=== PATIENT | male | born 1935 | race Caucasian/White ===

== ENCOUNTER 2018-07-23 14:44 | Inpatient (IN) | payer OTHER ==
[~2018-07-23] VITALS: Ht 165.1 cm; Wt 72.1 kg
[2018-07-23 14:58] VITALS: BP 154/67
[2018-07-23] MEDS ORDERED: PRILOSEC 10MG C10 MG PO (15:06)
[2018-07-23] MEDS ORDERED: FLOMAX0.4 MG PO (15:07)
[2018-07-23] MEDS ORDERED: CARVEDILOL12.5 MG PO (15:07)
[2018-07-23] MEDS ORDERED: GARLIC1 EACH PO (15:08)
[2018-07-23] MEDS ORDERED: VYTORIN 10-401 EACH PO (15:08)
[2018-07-23] MEDS ORDERED: ASPIRIN EC325 M1 PO (15:08)
[2018-07-23] MEDS ORDERED: POTASSIUM600 MG PO (15:09)
[2018-07-23] MEDS ORDERED: ONE DAILY FOR1 EACH PO (15:10)
[2018-07-23 15:25] LABS: ABSOLUTE BASOPHILS 0.1 thou/uL (0.0-0.2); ABSOLUTE EOSINOPHILS 0.2 thou/uL (0.0-0.7); ABSOLUTE LYMPHOCYTES 1.8 thou/uL (0.8-5.3); ABSOLUTE MONOCYTES 1.5 thou/uL (0.0-1.2); ABSOLUTE NEUTROPHILS 11.2 thou/uL (1.6-8.1); BASOPHILS 0.5 %; EOSINOPHILS 1.1 %; HEMATOCRIT 43.7 % (42.0-52.0); HEMOGLOBIN 14.2 gm/dL (14.0-18.0); LYMPHOCYTES 11.9 %; MCH 29.7 pg (26.0-34.0); MCHC 32.6 g/dL (28.0-37.0); MONOCYTES 10.4 %; MPV 8.8 fl. (7.2-11.1); NUCLEATED RBCS 0 /100WBC; PLATELET COUNT* 259 thou/uL (150-400); POLYS 76.1 %; RDW-CV 14.7 % (10.5-14.5); WBC 14.7 thou/uL (4.0-11.0)
[2018-07-23 15:41] LABS: ALBUMIN 2.4 g/dL (3.4-5.0); ALKALINE PHOSPHATASE 70 U/L (46-116); ANION GAP 6 mmol/L (7-16); BUN 24 mg/dL (7-18); CALCIUM 8.7 mg/dL (8.5-10.1); CHLORIDE 106 mmol/L (98-107); CO2 30 mmol/L (21-32); GLUCOSE 121 mg/dL (70-99); POTASSIUM 4.3 mmol/L (3.5-5.1); SGOT 19 U/L (15-37); SGPT 38 U/L (30-65); SODIUM 142 mmol/L (136-145); TOTAL BILIRUBIN 0.3 mg/dL (<0.1-1.0); TOTAL PROTEIN 7.3 g/dL (6.4-8.2); TROPONIN-I LEVEL <0.06 ng/mL (<0.06)
[2018-07-23 17:58] VITALS: BP 147/61
[2018-07-23 18:17] VITALS: BP 147/61
--- NOTE | 2018-07-23 18:38 | NUR ---
PATIENT CAME TO THE FLOOR FROM THE ER IN STABLE CONDITION. VITAL SIGNS STABLE ON 2 LITERS OF OXYGEN. UP AD ONOFRE IN ROOM. NO COMPLAINTS OF PAIN OR NAUSEA. ROOM ORIENTATION AND ADMISSION ASSESSMENT DONE. CALL LIGHT IS IN REACH WILL CONTINUE TO MONITOR.
[2018-07-23 20:45] VITALS: BP 148/77
[2018-07-24] VITALS: BP 161/67
[2018-07-24 04:00] VITALS: BP 126/59
[2018-07-24 04:08] LABS: HEMATOCRIT 39.1 % (42.0-52.0); HEMOGLOBIN 12.8 gm/dL (14.0-18.0); MCH 29.8 pg (26.0-34.0); MCHC 32.9 g/dL (28.0-37.0); MCV 90.6 fL (80.0-100.0); MPV 8.9 fl. (7.2-11.1); NUCLEATED RBCS 0 /100WBC; PLATELET COUNT* 238 thou/uL (150-400); RBC 4.31 mil/uL (4.50-6.00); RDW-CV 14.6 % (10.5-14.5)
[2018-07-24 04:30] LABS: CALCIUM 8.2 mg/dL (8.5-10.1); CREATININE 1.7 mg/dL (0.6-1.3); MAGNESIUM 1.9 mg/dL (1.8-2.4); PHOSPHORUS* 1.8 mg/dL (2.5-4.9); POTASSIUM 4.2 mmol/L (3.5-5.1)
--- NOTE | 2018-07-24 05:21 | NUR ---
ASSUMED CARE AT START OF SHIFT PT SAT UP IN CHAIR MOST OF SHIFT LOOSE PRO-COUGH NOTED SAMPLE SENT TO LAB ALONG WITH URINE SAMPLE ORDERED. NO CONCERNS VOICED, DISCUSSED PLAN OF CARE AND AGREEABLE. METAL FURNITURE GLAZIER SHOWS NSR WITH BBB. WILL REPORT CHANGES AND ABNORMAL FINDINGS.
[2018-07-24 05:56] LABS: ABSOLUTE LYMPHOCYTES 1.1 thou/uL (0.8-5.3); ABSOLUTE MONOCYTES 0.5 thou/uL (0.0-1.2); ABSOLUTE NEUTROPHILS 10.4 thou/uL (1.6-8.1); ANISOCYTOSIS 1+; PLATELET ESTIMATE ADEQUATE; POIKILOCYTOSIS 1+
[2018-07-24 09:26] VITALS: BP 141/48
[2018-07-24 12:00] VITALS: BP 160/52
--- NOTE | 2018-07-24 13:30 | 2DMMODE ---
[place] [address] 2 D/M-MODE ECHOCARDIOGRAM Name: AVILA NIX Room: [address] IN [facility]#: [id number] Admission: 07/23/18 Attend Phys: Juju Aquino MD Discharge: Date of : 39 Date of Service: 07/24/18 1330 Report #: [id number] THIS REPORT FOR: //name// APPROVED REPORT Study performed: 07/24/2018 09:29:07 EXAM: Comprehensive 2D, Doppler, and color-flow Echocardiogram Patient Location: In-Patient Room #: [facility] Status: routine BSA: 1.79 HR: 78 bpm BP: 141/48 mmHg Rhythm: NSR Other Information Study Quality: Good Indications COPD Dyspnea 2D Dimensions IVSd: 15.71 (7-11mm) LVOT Diam: 20.10 (18-24mm) LVDd: 45.07 mm PWd: 11.92 (7-11mm) Ascending Ao: 27.92 (22-36mm) LVDs: 32.27 (25-40mm) Aortic Root: 28.54 mm Volumes Left Atrial Volume (Systole) LA ESV Index: 22.60 mL/m2 Aortic Valve AoV Peak Esa.: 1.10 m/s AO Peak Gr.: 4.84 mmHg LVOT Max P.89 mmHg AO Mean Gr.: 2.94 mmHg LVOT Mean P.81 mmHg LVOT Max V: 0.99 m/s AO V2 VTI: 22.37 cm LVOT Mean V: 0.61 m/s SAM (VTI): 3.13 cm2 LVOT V1 VTI: 22.09 cm AI Canadian: 1.51 m/s2 AI PHT: 552.67 [place] [address] 2 D/M-MODE ECHOCARDIOGRAM Name: AVILA NIX Room: [address]#: [id number] Admission: 07/23/18 Attend Phys: Juju Aquino MD Discharge: Date of : 39 Date of Service: 07/24/18 1330 Report #: [id number] E/A Ratio: 0.76 MV Decel. Time: 163.93 ms MV E Max Esa.: 0.84 m/s MV PHT: 47.54 ms MVA (PHT): 4.63 cm2 TDI E/Lateral E': 7.64 E/Medial E': 10.50 Medial E' Esa.: 0.08 m/s Lateral E' Esa.: 0.11 m/s Pulmonary Valve PV Peak Esa.: 1.11 m/s PV Peak Gr.: 4.91 mmHg Left Ventricle The left ventricle is normal size. There is left ventricular dyssynergy consistent with underlying bundle branch block. Mild concentric left ventricular hypertrophy. Left ventricular systolic function is preserved. LVEF is 55-60%. Grade I - abnormal relaxation pattern. Right Ventricle The right ventricle is normal size. The right ventricular systolic function is normal. Atria The left atrium size is normal. The right atrium size is normal. Aortic Valve Mild aortic valve sclerosis. Mild aortic regurgitation. There is no aortic valvular stenosis. Mitral Valve The mitral valve is normal in structure. Mild mitral regurgitation. No evidence of mitral valve stenosis. Tricuspid Valve The tricuspid valve is normal in structure. Unable to assess PA pressure. Trace tricuspid regurgitation. Pulmonic Valve The pulmonary valve is normal in structure. There is no pulmonic valvular regurgitation. [place] [address] 2 D/M-MODE ECHOCARDIOGRAM Name: DINAHAVILA Room: [address]#: [id number] Admission: 07/23/18 Attend Phys: Juju Aquino MD Discharge: Date of : 39 Date of Service: 07/24/18 1330 Report #: [id number] The aortic root is normal in size. IVC is normal in size and collapses >50% with inspiration. Pericardium There is no pericardial effusion. <Conclusion> The left ventricle is normal size. Mild concentric left ventricular hypertrophy. Left ventricular systolic function is preserved. LVEF is 55-60%. Grade I - abnormal relaxation pattern. There is left ventricular dyssynergy consistent with underlying bundle branch block. Mild aortic valve sclerosis. Mild aortic regurgitation. Mild mitral regurgitation. IVC is normal in size and collapses >50% with inspiration. <ELECTRONICALLY SIGNED> By: Jose Maria MD, FACC 07/24/18 1330 1330 Jose Maria MD, FACC /INF
--- NOTE | 2018-07-24 13:38 | EKG ---
[place] [address] ELECTROCARDIOGRAM REPORT Name: AVILA NIX Room: [address] ADM IN M.R.#: [id number] Admission: 07/23/18 Attend Phys: Juju Aquino MD Discharge: Date of : 39 Report #: [id number] THIS REPORT FOR: //name// [facility] ED Test Date: 2018-07-23 Test Time: 14:58:02 Pat Name: AVILA NIX Department: Room: [facility] Gender: M Paper Ruler: : 1935 Requested By: Wendy Archuleta Order Number: [id number] MD: Jose Maria Measurements Intervals [place] Rate: 73 P: 55 [place]: 202 QRS: -26 QRSD: 146 T: 87 QT: 442 QTc: 488 Interpretive Statements Sinus rhythm Left bundle branch block Baseline wander in lead(s) V1,V2 Compared to ECG 02/15/2007 11:29:36 First degree AV block no longer present Atrial premature complex(es) no longer present Electronically Signed On 07-24-2018 13:37:49 CDT by Jose Maria [email or web address] <ELECTRONICALLY SIGNED> By: Jose Maria MD, FACC 07/24/18 1337 1458 1458 Jose Maria MD, FAC /EPI
--- NOTE | 2018-07-24 17:35 | NUR ---
PATIENT IS ALERT AND ORINETED TODAY VERY PLEASANT. UP AD NOOFRE IN ROOM WITH OXYGEN EXTENSION TUBING. NO COMPLAINTS OF PAIN TODAY. VITAL SIGNS STABLE, CALL LIGHT IS IN REACH WILL CONTINUE TO MONITOR.
[2018-07-24 20:00] VITALS: BP 142/55
[2018-07-25 00:30] VITALS: BP 141/55
[2018-07-25 04:36] VITALS: BP 129/52
[2018-07-25 04:44] LABS: CALCIUM 8.2 mg/dL (8.5-10.1); CREATININE 1.9 mg/dL (0.6-1.3); POTASSIUM 4.3 mmol/L (3.5-5.1)
--- NOTE | 2018-07-25 04:44 | NUR ---
ASSESSMENT: PT REMAIN ALERT AND ORIENT TIMES FOUR. SR WITH BBB PER MONITOR. 93-94% ON RA ALBEIT LUNGS SOUND VERY WHEEZY AND COARSE. VVS, AFEBRILE. WATCHED TV MOST OF THE NIGHT. IVF'S INFUSING WITHOUT DIFFICULTY. SLOW PROGRESS.
[2018-07-25 10:11] VITALS: BP 156/64
--- NOTE | 2018-07-25 11:28 | NUR ---
INITIAL ASSESSMENT: Pt evaluated for d/c planning needs. Reviewed chart and spoke with nurse and pt. Pt is alert and oriented. Pt lives in house with SO and was independent with ADL's prior to admission. Pt has cane at home, but does not use. Pt does not have home 02. Pt has not had home health in the past. Pt plans on returning home on d/c from hospital. Will remain available to assist as needed.
[2018-07-25 12:00] VITALS: BP 158/65
[2018-07-25] MEDS ORDERED: AZITHROMYCIN 2250 MG PO (15:33)
[2018-07-25] MEDS ORDERED: CEFDINIR300 MG PO (15:33)
[2018-07-25] MEDS ORDERED: PREDNISONE 20 M20 MG PO (15:34)
[2018-07-25 15:47] VITALS: BP 158/65
[2018-07-25 16:02] VITALS: BP 158/65
--- NOTE | 2018-07-25 16:03 | NUR ---
PATIENT IS ALERT AND ORIENTED TODAY VERY PLEASANT, UP AD ONOFRE IN ROOM, VITAL SIGNS STABLE ON ROOM AIR. NO COMPLAINNTS OF ANY PAIN TODAY. PATIENT IS BEING DISCHARGED TO HOME. PRESCRIPTIONS AND DISCHARGE INSTRUCTIONS GIVEN TO PATIENT WELL QUESTIONS ASWEREED. LEFT VIA WHEELCHAIR TO HOME. PATEINT DROVE SELF, HAS NOT TAKEN ANY NARCOTICS OR MEDICATIONS THAT COULD AFFECT DRIVING.
== END 2018-07-25 16:10 | disposition home or self-care (01) | DRG 871 ==
LOC: M.ERS 14:44 → M.3W 16:03 → M.TBA-ER 16:03 → M.3W 18:37
PROVIDERS: Nurse Practitioner Family; ADMIT Family Medicine
DX: A41.9 Sepsis, unspecified organism (principal); J96.01 Acute respiratory failure with hypoxia; J15.9 Unspecified bacterial pneumonia; I50.31 Acute diastolic (congestive) heart failure; J44.1 Chronic obstructive pulmonary disease with (acute) exacerbation; J44.0 Chronic obstructive pulmonary disease with (acute) lower respiratory infection; N18.4 Chronic kidney disease, stage 4 (severe); E44.0 Moderate protein-calorie malnutrition; N17.9 Acute kidney failure, unspecified; F17.210 Nicotine dependence, cigarettes, uncomplicated; N40.0 Benign prostatic hyperplasia without lower urinary tract symptoms; I25.10 Atherosclerotic heart disease of native coronary artery without angina pectoris; E83.39 Other disorders of phosphorus metabolism; Z68.26 Body mass index [BMI] 26.0-26.9, adult; Z71.6 Tobacco abuse counseling; Z79.82 Long term (current) use of aspirin; Z79.899 Other long term (current) drug therapy; Z88.0 Allergy status to penicillin; Z95.5 Presence of coronary angioplasty implant and graft; Z23 Encounter for immunization

== ENCOUNTER → 2021-01-25 | Outpatient (CLI) | payer MEDICARE ==
[~2021-01-25] MED LIST: ASPIRIN EC325 M1 PO; AZITHROMYCIN 2250 MG PO; CARVEDILOL12.5 MG PO; CEFDINIR300 MG PO; FLOMAX0.4 MG PO; GARLIC1 EACH PO; ONE DAILY FOR1 EACH PO; POTASSIUM600 MG PO; PREDNISONE 20 M20 MG PO; PRILOSEC 10MG C10 MG PO; VYTORIN 10-401 EACH PO
== END ==
LOC: M.ULTRA 07:47
PROVIDERS: ATTEND Internal Medicine Nephrology
DX: N28.1 Cyst of kidney, acquired (principal); N18.32 Chronic kidney disease, stage 3b

== ENCOUNTER 2021-04-09 19:40 | Inpatient (IN) | payer MEDICARE ==
[~2021-04-09] VITALS: Ht 165.1 cm; Wt 73.5 kg
[2021-04-09 19:41] VITALS: BP 134/62
[2021-04-09] MEDS ORDERED: B-125000 MC1 SUBLING (19:53)
[2021-04-09] MEDS ORDERED: NORVASC 2.5 MG2.5 MG PO (19:53)
[2021-04-09] MEDS ORDERED: VITAMIN D310 MC3 (19:54)
[2021-04-09 20:29] LABS: HEMATOCRIT 37.6 % (42.0-52.0); HEMOGLOBIN 11.9 gm/dL (14.0-18.0); MCH 28.8 pg (26.0-34.0); MCHC 31.6 g/dL (28.0-37.0); MCV 91.2 fL (80.0-100.0); MPV 8.6 fl. (7.2-11.1); NUCLEATED RBCS 0 /100WBC; PLATELET COUNT* 358 thou/uL (150-400); RBC 4.12 mil/uL (4.50-6.00); RDW-CV 15.2 % (10.5-14.5)
[2021-04-09 20:34] LABS: BE -8.2 mmol/L (-2 to +3); PCO2 41.9 mmHg (35.0-45.0); PO2 89.3 mmHg (75.0-100.0)
[2021-04-09 20:39] LABS: PROTIME 10.6 Seconds (9.20-11.50)
[2021-04-09 20:43] LABS: pH 7.261 (7.340-7.450)
[2021-04-09 21:00] LABS: CALCIUM 8.4 mg/dL (8.5-10.1); CREATININE 4.1 mg/dL (0.6-1.3); POTASSIUM 5.5 mmol/L (3.5-5.1)
[2021-04-09 21:02] LABS: ABSOLUTE LYMPHOCYTES 1.4 thou/uL (0.8-5.3); ABSOLUTE MONOCYTES 0.8 thou/uL (0.0-1.2); ABSOLUTE NEUTROPHILS 25.8 thou/uL (1.6-8.1); PLATELET ESTIMATE ADEQUATE
[2021-04-09 21:03] LABS: TOXIC GRANULATION 2+
[2021-04-09 21:11] LABS: ALBUMIN 1.9 g/dL (3.4-5.0); MAGNESIUM 2.3 mg/dL (1.8-2.4); TOTAL BILIRUBIN 0.3 mg/dL (<0.1-1.0); TOTAL PROTEIN 6.6 g/dL (6.4-8.2)
[2021-04-09 21:26] LABS: URINE BILIRUBIN NEGATIVE (Negative); URINE BLOOD 1+ (Negative); URINE CLARITY CLEAR; URINE COLOR ORANGE; URINE GLUCOSE-RANDOM NEGATIVE (Negative); URINE KETONES NEGATIVE (Negative); URINE LEUKOCYTES-REFLEX NEGATIVE (Negative); URINE NITRITE-REFLEX NEGATIVE (Negative); URINE PROTEIN 3+ (Negative); URINE SPECIFIC GRAVITY >= 1.030 (1.005-1.030); URINE UROBILINOGEN 0.2 E.U./dl (0.2-1.0)
[2021-04-09 21:40] LABS: BACTERIA-REFLEX >30 Many /HPF (None Seen); MUCUS 4-6 Moderate strn/LPF (None Seen); SQUAMOUS 0-3 Few /LPF (0-3); URINE RBC 3-10 Few /HPF (0-2); URINE WBC-REFLEX 6-15 Few /HPF (0-5); WBC CLUMPS Few (None Seen)
[2021-04-09 21:41] LABS: AMORPHOUS URATES Moderate /LPF (None Seen); COARSE GRANULAR CASTS 0-3 Few /LPF (None Seen); FINE GRANULAR CASTS 0-3 Few /LPF (None Seen)
[2021-04-10] VITALS (8 sets, daily range): BP systolic 95–165; BP diastolic 47–76
[2021-04-10 02:03] LABS: CALCIUM 8.5 mg/dL (8.5-10.1); CREATININE 3.8 mg/dL (0.6-1.3); POTASSIUM 5.7 mmol/L (3.5-5.1)
--- NOTE | 2021-04-10 16:01 | EKG ---
[place] [address] ELECTROCARDIOGRAM REPORT Name: AVILA NIX YUAN Room: [address] ADM IN .R.#: [id number] Admission: 04/09/21 Attend Phys: Juli Maya Discharge: Date of : 39 Date of Service: 04/09/211942 Report #: [id number] THIS REPORT FOR: //name// [facility] ED Test Date: 2021-04-09 Test Time: 19:43:35 Pat Name: AVILA NIX Department: Room: [facility] Gender: M Road Repairer: ME : 1935 Requested By: Sneha Hernandez Order Number: [id number] MD: Vasu Pollard Measurements Intervals [place] Rate: 83 P: 0 [place]: 165 QRS: 4 QRSD: 138 T: 143 QT: 401 QTc: 472 Interpretive Statements Sinus rhythm Left bundle branch block Baseline wander in lead(s) V3,V6 Compared to ECG 07/23/2018 14:58:02 No significant changes Electronically Signed On 04-10-2021 16:01:28 MEDICAL TECHNOLOGIST MICROBIOLOGY by Vasu Pollard [email or web address] <ELECTRONICALLY SIGNED> By: Vasu Pollard MD, FACC 04/10/21 1601 42 42 Vasu Pollard MD, FACC /EPI
[2021-04-11 04:31] VITALS: BP 123/55
[2021-04-11 04:55] LABS: ABSOLUTE LYMPHOCYTES 0.4 thou/uL (0.8-5.3); ABSOLUTE MONOCYTES 0.3 thou/uL (0.0-1.2); BASOPHILS 0.1 %; HEMATOCRIT 34.2 % (42.0-52.0); HEMOGLOBIN 10.8 gm/dL (14.0-18.0); LYMPHOCYTES 1.8 %; MCH 28.8 pg (26.0-34.0); MCHC 31.6 g/dL (28.0-37.0); MCV 91.2 fL (80.0-100.0); MONOCYTES 1.1 %; MPV 8.8 fl. (7.2-11.1); NUCLEATED RBCS 0 /100WBC; PLATELET COUNT* 387 thou/uL (150-400); RBC 3.75 mil/uL (4.50-6.00); RDW-CV 14.9 % (10.5-14.5); WBC 24.7 thou/uL (4.0-11.0)
[2021-04-11 05:23] LABS: ALBUMIN 1.6 g/dL (3.4-5.0); CALCIUM 8.5 mg/dL (8.5-10.1); CREATININE 4.3 mg/dL (0.6-1.3); MAGNESIUM 2.2 mg/dL (1.8-2.4); POTASSIUM 5.3 mmol/L (3.5-5.1); TOTAL BILIRUBIN 0.2 mg/dL (<0.1-1.0); TOTAL PROTEIN 6.6 g/dL (6.4-8.2)
[2021-04-11 07:17] LABS: INFLUENZA A ANTIGEN Negative (Negative); INFLUENZA B ANTIGEN Negative (Negative)
[2021-04-11 08:00] VITALS: BP 157/76
--- NOTE | 2021-04-11 11:54 | CON ---
[address] [address] CONSULTATION Name: AVILA NIX YUAN Room: [address] IN M.R.#: [id number] Admission: 04/09/21 Attend Phys: Zane Black Discharge: Date of : 39 Report #: [id number] THIS REPORT FOR: cc: Christi Walls Stefany RNP Arakelov, Alexandr V. MD ~ DATE OF CONSULTATION: 04/10/2021 REQUESTING PHYSICIAN: Moncho Arthur MD REASON FOR CONSULTATION: Acute kidney injury. HISTORY OF PRESENT ILLNESS: The patient is an 85-year-old gentleman with medical history significant for severe COPD with frequent COPD exacerbations, coronary artery disease, diabetes mellitus type 2, peripheral artery disease, and long history of tobaccoism. He states that he quit smoking a week ago. He presents with complaints of shortness of breath. He states that he requires frequent exacerbation with some problems due to COPD exacerbation. His creatinine on admission was 4.1, it is 3.8 now. His creatinine baseline around 2-2.5, potassium was 5.7, white count is elevated. Chest x-ray showed evidence of bilateral atelectasis, possible pneumonitis and evidence of COPD. Lung scan revealed perfusion pattern, which corresponds to the significant abnormal chest x-ray, particularly the left lung. No obvious mismatch perfusion identified. REVIEW OF SYSTEMS: He states that he feels better now, but was pretty short of breath on admission. PHYSICAL EXAMINATION: GENERAL: He is awake, alert, oriented, no acute distress now. VITAL SIGNS: Reviewed. NECK: Supple. LUNGS: Some expiratory wheezes. CARDIOVASCULAR: Regular rate. ABDOMEN: Soft. EXTREMITIES: Lower extremities, no edema. ASSESSMENT: 1. Acute kidney injury on top of the chronic kidney disease stage 4. Renal function slightly improving today. Continue with fluids, but stop LR because LR hastens potassium and potassium is going up. 2. Chronic obstructive pulmonary disease exacerbation. 3. Coronary artery disease. 4. Diabetes mellitus type 2. 5. Peripheral [place] [address] CONSULTATION Name: AVILA NIX YUAN Room: [address] IN [facility]#: [id number] Admission: 04/09/21 Attend Phys: Zane Black Discharge: Date of : 39 Report #: [id number] PLAN: 1. Continue with hydration, stop LR, give him D5 half at normal. 2. Follow labs. 3. Check renal ultrasound. Discussed with Dr. Jon. <ELECTRONICALLY SIGNED> By: Gaston Granados MD 04/11/21 1154 1330 1814Alexandhailee Granados MD /nt
[2021-04-11 12:00] VITALS: BP 142/61
--- NOTE | 2021-04-11 15:58 | 2DMMODE ---
[place] [address] 2 D/M-MODE ECHOCARDIOGRAM Name: AVILA NIX YUAN Room: [address] IN [facility]#: [id number] Admission: 04/09/21 Attend Phys: Juli Maya Discharge: Date of : 39 Date of Service: 04/11/21 1558 Report #: [id number] THIS REPORT FOR: cc: Christi Walls Stefany RNP Holkins, John M. MD [facility] ~ APPROVED REPORT Study performed: 04/11/2021 13:42:55 EXAM: Comprehensive 2D, Doppler, and color-flow Echocardiogram Patient Location: In-Patient Room #: [facility] Status: routine BSA: 1.80 HR: 84 bpm BP: 95/75 mmHg Rhythm: NSR Indications Dyspnea 2D Dimensions IVSd: 12.47 (7-11mm) LVOT Diam: 20.08 (18-24mm) LVDd: 63.74 mm PWd: 9.83 (7-11mm) Ascending Ao: 27.94 (22-36mm) LVDs: 40.54 (25-40mm) Aortic Root: 30.53 mm Volumes Left Atrial Volume (Systole) LA ESV Index: 25.00 mL/m2 Aortic Valve AoV Peak Esa.: 1.25 m/s AO Peak Gr.: 6.22 mmHg LVOT Max P.96 mmHg AO Mean Gr.: 3.54 mmHg LVOT Mean P.70 mmHg LVOT Max V: 0.86 m/s AO V2 VTI: 25.84 cm LVOT Mean V: 0.62 m/s SAM (VTI): 2.22 cm2 LVOT V1 VTI: 18.10 cm AI [place]comb: 2.88 m/s2 AI PHT: 322.88 [place] [address] 2 D/M-MODE ECHOCARDIOGRAM Name: AVILA NIX Room: [address] IN .R.#: [id number] Admission: 04/09/21 Attend Phys: Juli Maya Discharge: Date of : 39 Date of Service: 04/11/21 1558 Report #: [id number] E/A Ratio: 1.19 MV Decel. Time: 196.83 ms MV E Max Esa.: 0.96 m/s MV PHT: 57.08 ms MVA (PHT): 3.85 cm2 TDI E/Lateral E': 8.00 E/Medial E': 12.00 Medial E' Esa.: 0.08 m/s Lateral E' Esa.: 0.12 m/s Pulmonary Valve PV Peak Esa.: 0.86 m/s PV Peak Gr.: 2.97 mmHg Tricuspid Valve RAP Estimate: 5.00 mmHg TR Peak Gr.: 48.19 mmHg RVSP: 53.00 mmHg PA Pressure: 53.00 mmHg Left Ventricle The left ventricle is normal size. There is normal LV segmental wall motion. Mild concentric left ventricular hypertrophy. Left ventricular systolic function is mildly decreased. LVEF is 45-50%. Grade IV - fixed restrictive diastolic dysfunction. Right Ventricle The right ventricle is normal size. The right ventricular systolic function is normal. Atria The left atrium size is normal. The right atrium size is normal. Aortic Valve Mild aortic valve sclerosis. Mild aortic regurgitation. There is no aortic valvular stenosis. Mitral Valve The mitral valve is normal in structure. Moderate mitral regurgitation. No evidence of mitral valve stenosis. Tricuspid Valve The tricuspid valve is normal in structure. Mild tricuspid regurgitation. Moderate pulmonary hypertension[place] [address] 2 D/M-MODE ECHOCARDIOGRAM Name: AVILA NIX Room: [address] IN ..#: [id number] Admission: 04/09/21 Attend Phys: Juli Maya Discharge: Date of : 39 Date of Service: 04/11/21 1558 Report #: [id number] The pulmonary valve is normal in structure. There is no pulmonic valvular regurgitation. Great Vessels The aortic root is normal in size. IVC is normal in size and collapses >50% with inspiration. Pericardium There is no pericardial effusion. <Conclusion> The left ventricle is normal size. Mild concentric left ventricular hypertrophy. Left ventricular systolic function is mildly decreased. LVEF is 45-50%. The right ventricle is normal size. The left atrium size is normal. Mild aortic valve sclerosis. Mild aortic regurgitation. There is no aortic valvular stenosis. The mitral valve is normal in structure. Moderate mitral regurgitation. The tricuspid valve is normal in structure. Mild tricuspid regurgitation. Moderate pulmonary hypertension. IVC is normal in size and collapses >50% with inspiration. There is no pericardial effusion. There is normal LV segmental wall motion. <ELECTRONICALLY SIGNED> By: Vasu Pollard MD, FACC 04/11/21 1558 1558 1558 Vasu Pollard MD, FACC /INF
[2021-04-11 16:00] VITALS: BP 134/62
[2021-04-11 20:00] VITALS: BP 152/71
[2021-04-12 00:28] VITALS: BP 138/67
[2021-04-12 04:37] VITALS: BP 142/58
[2021-04-12 08:00] VITALS: BP 159/73
[2021-04-12 09:48] LABS: ABSOLUTE LYMPHOCYTES 0.5 thou/uL (0.8-5.3); ABSOLUTE MONOCYTES 0.8 thou/uL (0.0-1.2); ABSOLUTE NEUTROPHILS 21.2 thou/uL (1.6-8.1); HEMATOCRIT 34.4 % (42.0-52.0); HEMOGLOBIN 10.7 gm/dL (14.0-18.0); LYMPHOCYTES 2.2 %; MCH 28.3 pg (26.0-34.0); MCHC 31.1 g/dL (28.0-37.0); MCV 90.7 fL (80.0-100.0); MONOCYTES 3.7 %; MPV 8.5 fl. (7.2-11.1); NUCLEATED RBCS 0 /100WBC; PLATELET COUNT* 352 thou/uL (150-400); POLYS 94.1 %; RBC 3.79 mil/uL (4.50-6.00); RDW-CV 15.1 % (10.5-14.5); WBC 22.6 thou/uL (4.0-11.0)
[2021-04-12 10:00] LABS: ALBUMIN 2.2 g/dL (3.4-5.0); CALCIUM 8.3 mg/dL (8.5-10.1); MAGNESIUM 2.3 mg/dL (1.8-2.4); PHOSPHORUS* 5.6 mg/dL (2.5-4.9); POTASSIUM 5.6 mmol/L (3.5-5.1); TOTAL BILIRUBIN 0.2 mg/dL (<0.1-1.0); TOTAL PROTEIN 6.6 g/dL (6.4-8.2)
[2021-04-12 12:00] VITALS: BP 152/70
[2021-04-12 13:26] LABS: ANTI-Xa-UNFRACTIONATED HEP 7.271; BE -7.8 mmol/L (-2 to +3); PCO2 41.4 mmHg (35.0-45.0); PO2 94.2 mmHg (75.0-100.0)
[2021-04-12 13:29] LABS: pH 7.271 (7.340-7.450)
[2021-04-12 16:00] VITALS: BP 159/70
[2021-04-12 20:50] VITALS: BP 166/70
[2021-04-13] VITALS (7 sets, daily range): BP systolic 120–180; BP diastolic 53–81
[2021-04-13 04:39] LABS: ABSOLUTE LYMPHOCYTES 0.8 thou/uL (0.8-5.3); MPV 8.9 fl. (7.2-11.1); RDW-CV 15.2 % (10.5-14.5)
[2021-04-13 04:43] LABS: ABSOLUTE NEUTROPHILS 15.9 thou/uL (1.6-8.1); BASOPHILS 0.1 %; HEMATOCRIT 31.3 % (42.0-52.0); LYMPHOCYTES 4.4 %; MCH 29.1 pg (26.0-34.0); MCHC 31.9 g/dL (28.0-37.0); MCV 91.2 fL (80.0-100.0); MONOCYTES 5.5 %; NUCLEATED RBCS 0 /100WBC; PLATELET COUNT* 343 thou/uL (150-400); RBC 3.43 mil/uL (4.50-6.00); WBC 17.7 thou/uL (4.0-11.0)
[2021-04-13 05:04] LABS: ALBUMIN 2.4 g/dL (3.4-5.0); CALCIUM 8.3 mg/dL (8.5-10.1); POTASSIUM 5.5 mmol/L (3.5-5.1); TOTAL BILIRUBIN 0.2 mg/dL (<0.1-1.0); TOTAL PROTEIN 6.1 g/dL (6.4-8.2)
[2021-04-13 08:41] LABS: BE -8.9 mmol/L (-2 to +3); PCO2 43.7 mmHg (35.0-45.0); PO2 80.6 mmHg (75.0-100.0)
[2021-04-13 08:44] LABS: pH 7.236 (7.340-7.450)
--- NOTE | 2021-04-13 11:01 | EKG ---
[place] [address] ELECTROCARDIOGRAM REPORT Name: DINAHAVILATex BOLDEN Room: [address] ADM IN M.R.#: [id number] Admission: 04/09/21 Attend Phys: Juli Maya Discharge: Date of : 39 Date of Service: 04/12/21 1524 Report #: [id number] THIS REPORT FOR: //name// [facility] Test Date: 2021-04-12 Test Time: 15:24:39 Pat Name: AVILA NIX Department: Room: [address] Gender: M Bss Solution Architect: : 1935 Requested By: Moncho Arthur Order Number: [id number] Renee MD: Vasu Pollard Measurements Intervals [place] Rate: 78 P: 70 [place]: 212 QRS: 45 QRSD: 159 T: 159 QT: 450 QTc: 513 Interpretive Statements Poor quality data, interpretation may be affected Sinus rhythm Left bundle branch block Artifact in lead(s) I,II,III,aVR,aVF,V1,V2,V3,V4,V5,V6 Compared to ECG 04/09/2021 19:43:35 No significant changes Electronically Signed On 04-13-2021 11:00:33 ENTRY WRITER by Vasu Pollard [email or web address] <ELECTRONICALLY SIGNED> By: Vasu Pollard MD, [facility] 04/13/21 1100 1524 1524 Vasu Pollard MD, [facility] /EPI
--- NOTE | 2021-04-13 11:31 | CON ---
[address] [address] CONSULTATION Name: AVILA NIX Room: [address] IN M.R.#: [id number] Admission: 04/09/21 Attend Phys: Zane Black Discharge: Date of : 39 Report #: [id number] THIS REPORT FOR: cc: Christi Walls Stefany RNP Pervez, Adeel MD ~ DATE OF CONSULTATION: 04/10/2021 REQUESTING PHYSICIAN: Moncho Arthur MD HISTORY OF PRESENT ILLNESS: This is an 85-year-old gentleman. Past medical history includes a history of COPD as well as chronic renal insufficiency, baseline creatinine is around 1.7 from 2019. I do not have a more recent creatinine before this admission available. The patient is not on supplemental oxygen at home. He is an active smoker. He is not vaccinated for COVID. At this time, he is admitted with acute shortness of breath. Initial O2 saturation was 75% on room air. He has been actively bronchospastic. He has had a cough. There is not much sputum. There is no chest pain. He does not describe upper respiratory complaints. There is no swelling of lower extremities or calf pain. The patient currently is on 5 liters nasal cannula, maintaining O2 saturation in the low 90s. He still remains actively bronchospastic. REVIEW OF SYSTEMS: For 12 points is negative except as mentioned above. PAST MEDICAL HISTORY: COPD, chronic renal insufficiency, creatinine in 2019 was 1.7. I do not have a more recent creatinine before this admission available. Previous echo from 2 years ago shows a normal left ventricular ejection fraction without elevation in right heart pressures, coronary artery disease, status post stents in 2006, hernia surgery, benign prostatic hypertrophy, carotid stenosis, diabetes. SOCIAL HISTORY: He is an active smoker, 1 pack a day, says he discontinued a couple of days ago, but essentially he is an active smoker for 63 years. No known history of heavy alcohol use or illegal drug use. CURRENT MEDICATIONS: List in [employer] reviewed. HOME MEDICATIONS: List also in [employer] reviewed. ALLERGIES: REPORTED ALLERGY TO PENICILLIN; however, he tolerates cephalosporins without any problems. FAMILY HISTORY: [place] [address] CONSULTATION Name: AVILA NIX YUAN Room: [address]#: [id number] Admission: 04/09/21 Attend Phys: Zane Black Discharge: Date of : 39 Report #: [id number] PHYSICAL EXAMINATION: GENERAL: He is alert, awake and oriented, does not appear to be in any distress at this time. VITAL SIGNS: Has a pulse of 84 and a blood pressure of 95/75, saturating now in fact up to 98% on 5 liters nasal cannula. Respiratory rate is 16. He is afebrile with a temperature of 36.2. HEENT: Head is normocephalic and atraumatic. NECK: Does not show raised JVP. CHEST: Breath sounds are bilaterally equal, decreased. Expirations are prolonged. There are loud inspiratory as well as expiratory wheezes heard bilaterally. HEART: Regular. There is no murmur. ABDOMEN: Soft and nontender. EXTREMITIES: Lower extremities show no edema, no calf tenderness. SKIN: Dry and intact. NEUROLOGIC: Moves all extremities bilaterally equally and spontaneously with no focal deficit identified. LABORATORY DATA: The patient's lab work as well as chest x-ray and V/Q scan are in [facility] and these are reviewed. ASSESSMENT AND PLAN: 1. Acute hypoxemic respiratory failure. This is secondary to chronic obstructive pulmonary disease exacerbation. He is actively bronchospastic on exam. In addition, he does have infiltrates on chest x-ray as well. 2. Chronic obstructive pulmonary disease exacerbation. The patient is actively bronchospastic. He has been started on Solu-Medrol by Dr. Arthur. I agree with the same. We will await the response. He is also on DuoNebs. We will also continue the same. 3. Pulmonary infiltrates/community-acquired pneumonia. He received Zithromax and ceftriaxone in the ER. For now, I continued the same. More cultures and serologies are ordered. COVID-19 antigen was negative. PCR is pending. We will go ahead and order an influenza antigen as well. Other serologies and cultures are also ordered. 4. Acute on chronic renal failure. Creatinine from 2019 is 1.9/hyperkalemia. Management deferred to the Nephrology service. 5. Hyperglycemia/diabetes. Insulin sliding scale. 6. Evaluation for thromboembolic phenomena. Overall, my suspicion is low. The perfusion scan is nondiagnostic. I would; however, want to do an echo and look at the right heart pressures and also do venous Dopplers. For now, I only ordered heparin in the prophylactic dose. 7. Gastrointestinal prophylaxis, Protonix. 8. Clostridium difficile prophylaxis, Lactinex. [address] [address] CONSULTATION Name: AVILA NIX Room: [address] IN ..#: [id number] Admission: 04/09/21 Attend Phys: Zane Black Discharge: Date of : 39 Report #: [id number] Thanks for this consultation. <ELECTRONICALLY SIGNED> By: Calvin Jon MD 04/13/21 1131 1335 1826Aandrea Jon MD /nt
[2021-04-13 16:38] LABS: BF RBC <1000 /mm3; TOTAL CELL COUNT 297 /mm3
[2021-04-13 17:02] LABS: CLARITY HAZY; TOTAL VOLUME 1110 ml
[2021-04-13 17:08] LABS: BF LYMPHOCYTES 10 %; BF POLYS 90 %; BF TISSUE 10 /100 WBC
[2021-04-14] VITALS (9 sets, daily range): BP systolic 105–168; BP diastolic 59–99
[2021-04-14 05:53] LABS: HEMATOCRIT 33.6 % (42.0-52.0); HEMOGLOBIN 10.6 gm/dL (14.0-18.0); MCH 28.5 pg (26.0-34.0); MCHC 31.4 g/dL (28.0-37.0); MCV 90.6 fL (80.0-100.0); MPV 9.1 fl. (7.2-11.1); NUCLEATED RBCS 0 /100WBC; PLATELET COUNT* 362 thou/uL (150-400); RBC 3.71 mil/uL (4.50-6.00); RDW-CV 15.1 % (10.5-14.5); WBC 15.6 thou/uL (4.0-11.0)
[2021-04-14 06:09] LABS: ALBUMIN 2.2 g/dL (3.4-5.0); CALCIUM 8.5 mg/dL (8.5-10.1); CREATININE 3.9 mg/dL (0.6-1.3); MAGNESIUM 2.3 mg/dL (1.8-2.4); PHOSPHORUS* 5.5 mg/dL (2.5-4.9); POTASSIUM 5.6 mmol/L (3.5-5.1); TOTAL BILIRUBIN 0.2 mg/dL (<0.1-1.0); TOTAL PROTEIN 5.8 g/dL (6.4-8.2)
[2021-04-14 07:02] LABS: ABSOLUTE LYMPHOCYTES 0.5 thou/uL (0.8-5.3); ABSOLUTE NEUTROPHILS 15.1 thou/uL (1.6-8.1); HYPOCHROMASIA 2+; PLATELET ESTIMATE ADEQUATE
[2021-04-14 08:32] LABS: BE -3.9 mmol/L (-2 to +3); PCO2 41.6 mmHg (35.0-45.0); pH 7.335 (7.340-7.450)
[2021-04-15] VITALS: BP 125/41
[2021-04-15 04:00] VITALS: BP 123/61
[2021-04-15 08:00] VITALS: BP 138/59
[2021-04-15 08:15] LABS: ABSOLUTE LYMPHOCYTES 0.9 thou/uL (0.8-5.3); ABSOLUTE MONOCYTES 1.4 thou/uL (0.0-1.2); ABSOLUTE NEUTROPHILS 17.1 thou/uL (1.6-8.1); EOSINOPHILS 0.1 %; HEMATOCRIT 32.6 % (42.0-52.0); HEMOGLOBIN 10.3 gm/dL (14.0-18.0); LYMPHOCYTES 4.8 %; MCH 28.6 pg (26.0-34.0); MCHC 31.5 g/dL (28.0-37.0); MCV 90.8 fL (80.0-100.0); MONOCYTES 7.4 %; MPV 9.3 fl. (7.2-11.1); NUCLEATED RBCS 0 /100WBC; PLATELET COUNT* 361 thou/uL (150-400); POLYS 87.7 %; RDW-CV 14.8 % (10.5-14.5); WBC 19.5 thou/uL (4.0-11.0)
[2021-04-15 08:31] LABS: CALCIUM 8.1 mg/dL (8.5-10.1); CREATININE 3.5 mg/dL (0.6-1.3); POTASSIUM 5.3 mmol/L (3.5-5.1); TOTAL BILIRUBIN 0.3 mg/dL (<0.1-1.0); TOTAL PROTEIN 5.3 g/dL (6.4-8.2)
[2021-04-15 14:58] VITALS: BP 145/54
[2021-04-15 19:01] VITALS: BP 158/55
[2021-04-15 20:00] VITALS: BP 155/61
[2021-04-16 00:31] VITALS: BP 158/68
[2021-04-16 04:00] VITALS: BP 157/65
[2021-04-16 08:00] VITALS: BP 160/67
[2021-04-16 08:43] LABS: ABSOLUTE EOSINOPHILS 0.1 thou/uL (0.0-0.7); ABSOLUTE LYMPHOCYTES 1.4 thou/uL (0.8-5.3); ABSOLUTE MONOCYTES 1.5 thou/uL (0.0-1.2); ABSOLUTE NEUTROPHILS 18.6 thou/uL (1.6-8.1); EOSINOPHILS 0.7 %; HEMATOCRIT 32.7 % (42.0-52.0); HEMOGLOBIN 10.4 gm/dL (14.0-18.0); LYMPHOCYTES 6.3 %; MCH 28.4 pg (26.0-34.0); MCHC 31.9 g/dL (28.0-37.0); MCV 89.1 fL (80.0-100.0); MPV 9.3 fl. (7.2-11.1); NUCLEATED RBCS 0 /100WBC; PLATELET COUNT* 407 thou/uL (150-400); RBC 3.67 mil/uL (4.50-6.00); RDW-CV 14.3 % (10.5-14.5); WBC 21.6 thou/uL (4.0-11.0)
[2021-04-16 09:11] LABS: CALCIUM 8.1 mg/dL (8.5-10.1); CREATININE 3.5 mg/dL (0.6-1.3); POTASSIUM 5.1 mmol/L (3.5-5.1)
[2021-04-16 11:34] VITALS: BP 148/67
[2021-04-16 19:46] VITALS: BP 159/61
[2021-04-17] VITALS: BP 141/37
[2021-04-17 04:00] VITALS: BP 149/56
[2021-04-17 05:53] LABS: CALCIUM 7.7 mg/dL (8.5-10.1); CREATININE 3.6 mg/dL (0.6-1.3); POTASSIUM 4.8 mmol/L (3.5-5.1)
[2021-04-17 08:00] VITALS: BP 160/56
[2021-04-17 08:13] LABS: ABSOLUTE BASOPHILS 0.1 thou/uL (0.0-0.2); ABSOLUTE EOSINOPHILS 0.2 thou/uL (0.0-0.7); ABSOLUTE LYMPHOCYTES 1.3 thou/uL (0.8-5.3); ABSOLUTE MONOCYTES 1.2 thou/uL (0.0-1.2); ABSOLUTE NEUTROPHILS 16.9 thou/uL (1.6-8.1); BASOPHILS 0.4 %; EOSINOPHILS 0.9 %; HEMATOCRIT 33.4 % (42.0-52.0); HEMOGLOBIN 10.7 gm/dL (14.0-18.0); LYMPHOCYTES 6.7 %; MCH 28.7 pg (26.0-34.0); MCHC 31.9 g/dL (28.0-37.0); MCV 89.9 fL (80.0-100.0); MPV 8.6 fl. (7.2-11.1); NUCLEATED RBCS 0 /100WBC; PLATELET COUNT* 387 thou/uL (150-400); RBC 3.72 mil/uL (4.50-6.00); RDW-CV 14.4 % (10.5-14.5); WBC 19.6 thou/uL (4.0-11.0)
[2021-04-17 11:33] VITALS: BP 145/52
[2021-04-17 16:00] VITALS: BP 150/57
[2021-04-17 20:00] VITALS: BP 165/51
[2021-04-18 02:16] VITALS: BP 156/52
[2021-04-18 04:28] LABS: HEMOGLOBIN 9.4 gm/dL (14.0-18.0); MCH 29.1 pg (26.0-34.0); MCHC 32.4 g/dL (28.0-37.0); MPV 9.6 fl. (7.2-11.1); NUCLEATED RBCS 0 /100WBC; PLATELET COUNT* 332 thou/uL (150-400); RBC 3.23 mil/uL (4.50-6.00); RDW-CV 14.1 % (10.5-14.5); WBC 18.8 thou/uL (4.0-11.0)
[2021-04-18 05:26] LABS: ALBUMIN 1.9 g/dL (3.4-5.0); CALCIUM 7.6 mg/dL (8.5-10.1); CREATININE 3.6 mg/dL (0.6-1.3); MAGNESIUM 2.4 mg/dL (1.8-2.4); TOTAL BILIRUBIN 0.3 mg/dL (<0.1-1.0); TOTAL PROTEIN 4.6 g/dL (6.4-8.2)
[2021-04-18 06:33] LABS: ABSOLUTE EOSINOPHILS 0.2 thou/uL (0.0-0.7); ABSOLUTE LYMPHOCYTES 0.9 thou/uL (0.8-5.3); ABSOLUTE MONOCYTES 1.5 thou/uL (0.0-1.2); ABSOLUTE NEUTROPHILS 16.2 thou/uL (1.6-8.1)
[2021-04-18 06:34] LABS: PLATELET ESTIMATE ADEQUATE
[2021-04-18 06:55] VITALS: BP 162/62
[2021-04-18 07:40] VITALS: BP 144/51
[2021-04-18 11:20] VITALS: BP 146/55
[2021-04-18] MEDS ORDERED: LEVOFLOXACIN500 MG PO (16:35)
[2021-04-18] MEDS ORDERED: PREDNISONE 10 M10 MG PO (16:35)
[2021-04-18 17:05] VITALS: BP 146/55
== END 2021-04-18 17:18 | disposition home or self-care (01) | DRG 177 ==
LOC: M.ERS 19:40 → M.TBA-ER 20:32 → M.ORTHSURG 20:32 → M.2W 04-14 18:10
PROVIDERS: Emergency Medicine; Internal Medicine; Internal Medicine Critical Care Medicine; Internal Medicine Nephrology; ADMIT Internal Medicine; ATTEND Internal Medicine
PROC: 5A09357 Assistance with Respiratory Ventilation, Less than 24 Consecutive Hours, Continuous Positive Airway Pressure (ICD-10-PCS; principal; 2021-04-09)
PROC: 5A09357 Assistance with Respiratory Ventilation, Less than 24 Consecutive Hours, Continuous Positive Airway Pressure (ICD-10-PCS; 2021-04-10)
PROC: 5A0935A Assistance with Respiratory Ventilation, Less than 24 Consecutive Hours, High Flow/Velocity Cannula (ICD-10-PCS; 2021-04-10)
PROC: 5A09357 Assistance with Respiratory Ventilation, Less than 24 Consecutive Hours, Continuous Positive Airway Pressure (ICD-10-PCS; 2021-04-12)
PROC: 5A09357 Assistance with Respiratory Ventilation, Less than 24 Consecutive Hours, Continuous Positive Airway Pressure (ICD-10-PCS; 2021-04-13)
PROC: 0W993ZZ Drainage of Right Pleural Cavity, Percutaneous Approach (ICD-10-PCS; 2021-04-13)
PROC: 5A09357 Assistance with Respiratory Ventilation, Less than 24 Consecutive Hours, Continuous Positive Airway Pressure (ICD-10-PCS; 2021-04-15)
DX: J15.6 Pneumonia due to other Gram-negative bacteria (principal); J96.01 Acute respiratory failure with hypoxia; J44.1 Chronic obstructive pulmonary disease with (acute) exacerbation; N17.9 Acute kidney failure, unspecified; N30.00 Acute cystitis without hematuria; I50.32 Chronic diastolic (congestive) heart failure; I42.9 Cardiomyopathy, unspecified; J91.8 Pleural effusion in other conditions classified elsewhere; N18.4 Chronic kidney disease, stage 4 (severe); J44.0 Chronic obstructive pulmonary disease with (acute) lower respiratory infection; Z20.822 Contact with and (suspected) exposure to COVID-19; E11.22 Type 2 diabetes mellitus with diabetic chronic kidney disease; N40.0 Benign prostatic hyperplasia without lower urinary tract symptoms; F17.210 Nicotine dependence, cigarettes, uncomplicated; E11.65 Type 2 diabetes mellitus with hyperglycemia; E11.51 Type 2 diabetes mellitus with diabetic peripheral angiopathy without gangrene; I34.0 Nonrheumatic mitral (valve) insufficiency; E87.5 Hyperkalemia; I25.10 Atherosclerotic heart disease of native coronary artery without angina pectoris; Z79.82 Long term (current) use of aspirin; Z88.0 Allergy status to penicillin; Z28.21 Immunization not carried out because of patient refusal; Z95.5 Presence of coronary angioplasty implant and graft

== ENCOUNTER → 2021-04-21 | Outpatient (CLI) | payer MEDICARE ==
[~2021-04-21] MED LIST changes: +B-125000 MC1 SUBLING; +LEVOFLOXACIN500 MG PO; +NORVASC 2.5 MG2.5 MG PO; +PREDNISONE 10 M10 MG PO; +VITAMIN D310 MC3
[2021-04-21 14:10] LABS: CALCIUM 7.4 mg/dL (8.5-10.1); CREATININE 3.4 mg/dL (0.6-1.3); POTASSIUM 5.5 mmol/L (3.5-5.1)
== END ==
LOC: M.LAB 13:36
PROVIDERS: ATTEND Internal Medicine
DX: N17.9 Acute kidney failure, unspecified (principal)

== ENCOUNTER 2021-04-24 14:22 | Inpatient (IN) | payer MEDICARE ==
[~2021-04-24] VITALS: Ht 165.1 cm; Wt 69.9 kg
[2021-04-24 14:39] VITALS: BP 131/55
--- NOTE | 2021-04-24 15:35 | EKG ---
[place] [address] ELECTROCARDIOGRAM REPORT Name: AVILA NIX YUAN Room: [facility]#: [id number] Admission: 04/24/21 Attend Phys: Discharge: Date of : 39 Date of Service: 04/24/21 1448 Report #: [id number] THIS REPORT FOR: //name// [facility] ED Test Date: 2021-04-24 Test Time: 14:48:25 Pat Name: AVILA NIX Department: Room: Gender: Press Hand Supervisor: : 1935 Requested By: Aleksandar Martin Order Number: [id number] MD: Vasu Pollard Measurements Intervals [place] Rate: 69 P: 23 WV: 164 QRS: 10 QRSD: 135 T: 109 QT: 459 QTc: 492 Interpretive Statements Sinus rhythm Left bundle branch block Baseline wander in lead(s) V4 Compared to ECG 04/12/2021 15:24:39 No significant changes Electronically Signed On 04-24-2021 15:35:07 TIRE DUSTER by Vasu Pollard [email or web address] <ELECTRONICALLY SIGNED> By: Vasu Pollard MD, [facility] 04/24/21 1535 1448 1448 Vasu Pollard MD, [facility] /EPI
[2021-04-24 15:50] LABS: HEMATOCRIT 33.7 % (42.0-52.0); HEMOGLOBIN 10.8 gm/dL (14.0-18.0); MCH 29.4 pg (26.0-34.0); MCHC 32.2 g/dL (28.0-37.0); MCV 91.2 fL (80.0-100.0); MPV 9.4 fl. (7.2-11.1); NUCLEATED RBCS 0 /100WBC; PLATELET COUNT* 284 thou/uL (150-400); RBC 3.69 mil/uL (4.50-6.00); RDW-CV 15.3 % (10.5-14.5); WBC 17.8 thou/uL (4.0-11.0)
[2021-04-24 15:58] LABS: CALCIUM 6.5 mg/dL (8.5-10.1); CREATININE 3.8 mg/dL (0.6-1.3); POTASSIUM 5.1 mmol/L (3.5-5.1)
[2021-04-24 16:09] LABS: ALBUMIN 2.6 g/dL (3.4-5.0); MAGNESIUM 1.8 mg/dL (1.8-2.4); TOTAL BILIRUBIN 0.3 mg/dL (<0.1-1.0)
[2021-04-24 16:45] LABS: ABSOLUTE LYMPHOCYTES 0.7 thou/uL (0.8-5.3); ABSOLUTE MONOCYTES 0.4 thou/uL (0.0-1.2); ABSOLUTE NEUTROPHILS 16.7 thou/uL (1.6-8.1); PLATELET ESTIMATE ADEQUATE
[2021-04-24 20:00] VITALS: BP 162/64
[2021-04-25 00:05] VITALS: BP 145/90
[2021-04-25 04:05] VITALS: BP 149/65
[2021-04-25 07:00] VITALS: BP 149/65
[2021-04-25 08:10] VITALS: BP 143/57
[2021-04-25 11:30] VITALS: BP 145/72
--- NOTE | 2021-04-25 15:51 | 2DMMODE ---
[place] [address] 2 D/M-MODE ECHOCARDIOGRAM Name: AVILA NIX Room: [address] IN [facility]#: [id number] Admission: 04/24/21 Attend Phys: Moncho Arthur Discharge: Date of : 39 Date of Service: 04/25/21 1551 Report #: [id number] THIS REPORT FOR: cc: [facility] - Clinic physician unknown [facility] - Clinic physician unknown Vasu Pollard MD [facility] ~ APPROVED REPORT Study performed: 04/25/2021 10:10:07 EXAM: Limited 2D Echocardiogram Patient Location: In-Patient Room #: [facility] Status: routine BSA: 1.76 HR: 64 bpm BP: 143/57 mmHg Rhythm: NSR Other Information Study Quality: Good Indications Dyspnea Left Ventricle The left ventricle is normal size. There is a segmental wall motion abnormality with inferobasilar akinesis. Mild concentric left ventricular hypertrophy. Left ventricular systolic function is mildly decreased. LVEF is 45-50%. Right Ventricle The right ventricle is normal size. The right ventricular systolic function is normal. Atria The left atrium size is normal. The right atrium size is normal. Aortic Valve Mild aortic valve sclerosis. Mild to moderate aortic regurgitation. No hemodynamically significant valvular aortic stenosis. Mitral Valve The mitral valve is normal in structure. Mild to moderate mitral [address] [address] 2 D/M-MODE ECHOCARDIOGRAM Name: AVILA NIX EDDIE Room: [address] IN M.R.#: [id number] Admission: 04/24/21 Attend Phys: Moncho Arthur Discharge: Date of : 39 Date of Service: 04/25/21 1551 Report #: [id number] regurgitation. Tricuspid Valve The tricuspid valve is normal in structure. Trace tricuspid regurgitation. Unable to assess PA pressure. Pulmonic Valve The pulmonary valve is normal in structure. Great Vessels The aortic root is normal in size. IVC is normal in size and collapses >50% with inspiration. Pericardium There is no pericardial effusion. <Conclusion> The left ventricle is normal size. Mild concentric left ventricular hypertrophy. Left ventricular systolic function is mildly decreased. LVEF is 45-50%. The right ventricle is normal size. The left atrium size is normal. Mild aortic valve sclerosis. Mild to moderate aortic regurgitation. No hemodynamically significant valvular aortic stenosis. The mitral valve is normal in structure. Mild to moderate mitral regurgitation. The tricuspid valve is normal in structure. IVC is normal in size and collapses >50% with inspiration. There is no pericardial effusion. There is a segmental wall motion abnormality with inferobasilar akinesis. <ELECTRONICALLY SIGNED> By: Vasu Pollard MD, FACC 12/14/21 155 50 50 Vasu Pollard MD, [facility] /INF
[2021-04-25] MEDS ORDERED: METFORMIN HCL500 M3 PO (17:10)
[2021-04-25 20:44] VITALS: BP 153/62; BP 170/59
[2021-04-26] VITALS: BP 134/56
[2021-04-26 04:41] VITALS: BP 153/70
[2021-04-26 08:00] VITALS: BP 138/54
[2021-04-26 12:42] VITALS: BP 136/56
[2021-04-26 16:00] VITALS: BP 139/51
[2021-04-26 20:20] VITALS: BP 154/54
[2021-04-27] VITALS (8 sets, daily range): BP systolic 107–143; BP diastolic 51–56
[2021-04-27] MEDS ORDERED: PREDNISONE 10 M10 MG PO (11:35)
[2021-04-27] MEDS ORDERED: AUGMENTIN 875-1 EACH PO (11:35)
[2021-04-27] MEDS ORDERED: LISINOPRIL2.5 MG PO (11:36)
[2021-04-27] MEDS ORDERED: LASIX 40 MG TAB40 MG PO (16:32)
== END 2021-04-27 16:50 | disposition home health service (06) | DRG 177 ==
LOC: M.ERS 14:22 → M.ORTHSURG 15:47 → M.2W 15:47 → M.TBA-ER 15:47 → M.ORTHSURG 04-25 07:10 → M.2W 04-26 13:19
PROVIDERS: Family Medicine; ADMIT Internal Medicine; ATTEND Internal Medicine
DX: J15.6 Pneumonia due to other Gram-negative bacteria (principal); I50.43 Acute on chronic combined systolic (congestive) and diastolic (congestive) heart failure; J96.01 Acute respiratory failure with hypoxia; J44.0 Chronic obstructive pulmonary disease with (acute) lower respiratory infection; N17.9 Acute kidney failure, unspecified; I13.0 Hypertensive heart and chronic kidney disease with heart failure and stage 1 through stage 4 chronic kidney disease, or unspecified chronic kidney disease; J44.1 Chronic obstructive pulmonary disease with (acute) exacerbation; Z88.0 Allergy status to penicillin; Z79.899 Other long term (current) drug therapy; Z20.822 Contact with and (suspected) exposure to COVID-19; N18.9 Chronic kidney disease, unspecified; E11.22 Type 2 diabetes mellitus with diabetic chronic kidney disease; Z79.4 Long term (current) use of insulin; I25.2 Old myocardial infarction; Z95.5 Presence of coronary angioplasty implant and graft; I25.10 Atherosclerotic heart disease of native coronary artery without angina pectoris; F17.210 Nicotine dependence, cigarettes, uncomplicated

== ENCOUNTER 2021-06-02 11:05 | Inpatient (IN) | payer MEDICARE ==
[~2021-06-02] VITALS: Ht 165.1 cm; Wt 58.5 kg
--- NOTE | ~2021-06-02 | EKG ---
[place] [address] ELECTROCARDIOGRAM REPORT Name: DINAHAVILA Room: [facility].#: [id number] Admission: Attend Phys: Discharge: Date of : 39 Date of Service: 06/02/21 111 Report #: [id number] THIS REPORT FOR: //name// [facility] ED Test Date: 2021-06-02 Test Time: 11:10:33 Pat Name: AVILA NIX Department: Room: Gender: Rn Women Services: ERIC : 1935 Requested By: Binta Mcallister Order Number: [id number] MD: Measurements Intervals [place] Rate: 100 P: [place]: QRS: -40 QRSD: 150 T: 118 QT: 405 QTc: 523 Interpretive Statements Atrial fibrillation Left bundle branch block Baseline wander in lead(s) V4 Compared to ECG 04/24/2021 14:48:25 Sinus rhythm no longer present [email or web address] By: 09 1110 Epiphany EpiphanyMD /EPI
[~2021-06-02 11:05] MED LIST changes: +AUGMENTIN 875-1 EACH PO; +LASIX 40 MG TAB40 MG PO; +LISINOPRIL2.5 MG PO; +METFORMIN HCL500 M3 PO; +OMEPRAZOLE10 MG PO; -PRILOSEC 10MG C10 MG PO
[2021-06-02 11:10] VITALS: BP 87/47
[2021-06-02 11:42] LABS: HEMATOCRIT 35.4 % (42.0-52.0); HEMOGLOBIN 11.4 gm/dL (14.0-18.0); MCH 28.9 pg (26.0-34.0); MCHC 32.3 g/dL (28.0-37.0); MCV 89.6 fL (80.0-100.0); MPV 8.2 fl. (7.2-11.1); NUCLEATED RBCS 0 /100WBC; PLATELET COUNT* 394 thou/uL (150-400); RBC 3.94 mil/uL (4.50-6.00); RDW-CV 16.1 % (10.5-14.5); WBC 17.7 thou/uL (4.0-11.0)
--- NOTE | 2021-06-02 11:46 | NUR ---
ASSUMED CARE OF THIS PT AT THIS TIME. PT SITTING UP IN BED, RESTING COMFORTABLY. HR NOTED TO BE TACHY AT 176, BP 104/56, O2 SAT 94% ON NC. PT ALERT AND ORIENTED. ANSWERING ALL QUESTIONS APPROPRIATELY.
[2021-06-02 11:56] LABS: APTT 26.7 Seconds (25.0-31.3); PROTIME 10.2 Seconds (9.20-11.50)
[2021-06-02 12:11] LABS: ABSOLUTE LYMPHOCYTES 1.2 thou/uL (0.8-5.3); ABSOLUTE MONOCYTES 0.4 thou/uL (0.0-1.2); ABSOLUTE NEUTROPHILS 16.1 thou/uL (1.6-8.1); METAMYELOCYTES 1 %
[2021-06-02 12:12] LABS: HYPOCHROMASIA Occasional; PLATELET ESTIMATE ADEQUATE
[2021-06-02 12:28] LABS: ALBUMIN 2.2 g/dL (3.4-5.0); CALCIUM 8.6 mg/dL (8.5-10.1); CREATININE 4.6 mg/dL (0.6-1.3); TOTAL BILIRUBIN 0.3 mg/dL (<0.1-1.0); TOTAL PROTEIN 6.5 g/dL (6.4-8.2)
[2021-06-02 12:31] LABS: POTASSIUM 6.4 mmol/L (3.5-5.1)
--- NOTE | 2021-06-02 12:32 | NUR ---
CRITICAL RESULT RECIEVED FROM LAB. K+ 6.4. PROVIDER NOTIFIED AT THIS TIME.
[2021-06-02 12:42] LABS: BE -13.1 mmol/L (-2 to +3); PCO2 23.2 mmHg (35.0-45.0); PO2 62.2 mmHg (75.0-100.0); pH 7.307 (7.340-7.450)
[2021-06-02 13:15] VITALS: BP 115/45
--- NOTE | 2021-06-02 14:39 | EKG ---
[place] [address] ELECTROCARDIOGRAM REPORT Name: AVILA NIX YUAN Room: [place] [address] ADM IN [facility].#: [id number] Admission: 06/02/21 Attend Phys: Naomi Krishnan Discharge: Date of : 39 Date of Service: 06/02/21 1110 Report #: [id number] THIS REPORT FOR: //name// [facility] ED Test Date: 2021-06-02 Test Time: 11:10:33 Pat Name: AVILA NIX Department: Room: 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 : 1935 Requested By: Jude Macias Order Number: [id number] MD: Jacinto Aceves Measurements Intervals [place] Rate: 100 P: [place]: QRS: -40 QRSD: 150 T: 118 QT: 405 QTc: 523 Interpretive Statements Atrial fibrillation Left bundle branch block Baseline wander in lead(s) V4 Compared to ECG 04/24/2021 14:48:25 Sinus rhythm no longer present Electronically Signed On 06-02-2021 14:39:44 FARM EQUIPMENT MECHANIC by Jacinto Aceves [email or web address] <ELECTRONICALLY SIGNED> By: Jacinto Aecves MD, FAC 06/02/21 1439 1110 1110 Jacinto Aceves MD, FAC /EPI
[2021-06-02 16:07] LABS: CALCIUM 8.9 mg/dL (8.5-10.1); CREATININE 4.2 mg/dL (0.6-1.3)
[2021-06-02 16:08] LABS: POTASSIUM 6.2 mmol/L (3.5-5.1)
[2021-06-02 16:37] LABS: BE -10.3 mmol/L (-2 to +3); PCO2 26.5 mmHg (35.0-45.0); PO2 75.5 mmHg (75.0-100.0); pH 7.341 (7.340-7.450)
[2021-06-02 17:05] VITALS: BP 119/53
[2021-06-02 17:29] VITALS: BP 124/86
[2021-06-02 21:30] VITALS: BP 90/60
[2021-06-03] VITALS (7 sets, daily range): BP systolic 79–163; BP diastolic 50–85
--- NOTE | 2021-06-03 05:19 | NUR ---
PT AOX4 LYING IN BED FOR ASSESSMENT. VSS, PT ON 2L NC WHICH IS HIS BASELINE. PT HAD CRITICAL POTASSIUM AND WAS GIVEN KAYEXALATE AND HAS LARGE AMOUNT OF STOOL OUT THIS PM SHIFT. PT HAS BEEN USING URINAL, REQUESTING CONDOM CATHETER. THIS WILL BE PLACED WHEN HE IS DONE WITH FREQUENT STOOLS. FLUIDS INFUSING PER ORDER. PT HAS BEEN AFIB ON TELE. DENIES PAIN. CALL LIGHT IN REACH FOR PT SAFETY, PT MAKES NEEDS KNOWN DURING HOURLY ROUNDING.
[2021-06-03 05:50] LABS: ABSOLUTE LYMPHOCYTES 0.6 thou/uL (0.8-5.3); ABSOLUTE MONOCYTES 0.9 thou/uL (0.0-1.2); HEMOGLOBIN 10.8 gm/dL (14.0-18.0); LYMPHOCYTES 3.4 %; MCH 29.4 pg (26.0-34.0); MCHC 30.8 g/dL (28.0-37.0); MPV 8.8 fl. (7.2-11.1); NUCLEATED RBCS 0 /100WBC; PLATELET COUNT* 325 thou/uL (150-400); POLYS 91.6 %; RBC 3.66 mil/uL (4.50-6.00); RDW-CV 16.7 % (10.5-14.5); WBC 17.4 thou/uL (4.0-11.0)
[2021-06-03 06:26] LABS: MCV 95.7 fL (80.0-100.0)
[2021-06-03 06:38] LABS: CALCIUM 8.1 mg/dL (8.5-10.1)
--- NOTE | 2021-06-03 10:06 | EKG ---
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: : 1935 Requested By: Jude Macias Order Number: [id number] MD: Jacinto Aceves Measurements Intervals [place] Rate: 100 P: [place]: QRS: -33 QRSD: 150 T: 120 QT: 404 QTc: 522 Interpretive Statements Atrial fibrillation Left bundle branch block Baseline wander in lead(s) V3 Compared to ECG 06/02/2021 11:10:33 No significant changes Electronically Signed On 06-03-2021 10:06:41 CHEMISTRY RESEARCH ASSISTANT by Jacinto Aceves [email or web address] <ELECTRONICALLY SIGNED> By: Jacinto Aceves MD, [facility] 06/03/21 1006 120 1206 Jacinto Aceves MD, [facility] /EPI
--- NOTE | 2021-06-03 15:47 | NUR ---
PATIENTS BLOOD SUGAR IS 35. GAVE PATIENT ORANGE JUICE 8 OZ. WILL RECHECK SOON. PATIENT ALSO HAS SYSTOLIC BP 86. DID LET DR BOX KNOW THIS. CONTINUE TO MONITOR PATIENT.
--- NOTE | 2021-06-03 17:02 | NUR ---
PATIENT EATING HIS DINNER. CLEAR LIQUIDS. PATIENT BLOOD SUGAR WENT UP TO [address] BOX HERE. ORDERS NOTED.
--- NOTE | 2021-06-03 19:20 | NUR ---
ASSUMED CARE THIS AM AROUND 0700 UNTIL 1900. PATIENT WAS CRANKY THIS AM. HE VERBALIZED THAT HE HAD BEEN IN HOSPITAL 3 TIMES. WANTS TO KNOW IF HE IS GOING TO GET BETTER. DR BOX IN TODAY AND TOLD PATIENT HE IS IMPROVING. NEPHROLOGY CAME, BUT NOT IN PATIENTS ROOM. ORDERS NOTED. PATIENT WAS CONCERNED ABOUT HIS URINE. PLACED CONDOM CATHETER TODAY. FAIR URINARY OUTPUT. CLEAR LIGHT YELLOW.
[2021-06-04 00:27] VITALS: BP 112/57
[2021-06-04 03:47] LABS: BE -5.1 mmol/L (-2 to +3); PCO2 26.2 mmHg (35.0-45.0); PO2 73.3 mmHg (75.0-100.0); pH 7.453 (7.340-7.450)
[2021-06-04 04:13] VITALS: BP 118/72
[2021-06-04 05:25] LABS: HEMATOCRIT 29.4 % (42.0-52.0); HEMOGLOBIN 9.4 gm/dL (14.0-18.0); MCH 29.2 pg (26.0-34.0); MCHC 32.1 g/dL (28.0-37.0); MCV 91.1 fL (80.0-100.0); MPV 8.2 fl. (7.2-11.1); RBC 3.23 mil/uL (4.50-6.00); RDW-CV 16.2 % (10.5-14.5); WBC 14.5 thou/uL (4.0-11.0)
[2021-06-04 05:49] LABS: CALCIUM 7.3 mg/dL (8.5-10.1); CREATININE 3.8 mg/dL (0.6-1.3); POTASSIUM 4.6 mmol/L (3.5-5.1)
--- NOTE | 2021-06-04 06:41 | NUR ---
PT AO X4 LYING IN BED FOR ASSESSMENT. HE IS FEELING TIRED AND WAS CONCERNED TO HEAR HIS PCR WAS POSITIVE. VSS, PT ON BASELINE 2L SATTING APPROPRIATELY. PT HAS GOOD ORAL INTAKE AND USING URINAL TO VOID. LUNGS ARE DIMINISHED WITH SCATTERED WHEEZES AND COURSE CRACKLES. HE IS NOT COUGHING MUCH AND HAS REFUSED NYSTATIN SWISH AND SWALLOW. CALL LIGHT IN REACH AND PT MAKES NEED KNOWN WITH HOURLY ROUNDING.
--- NOTE | 2021-06-04 06:59 | CON ---
[address] [address] CONSULTATION Name: AVILA NIX Room: [address] IN .R.#: [id number] Admission: 06/02/21 Attend Phys: Roshni Aguillon Discharge: Date of : 39 Report #: [id number] THIS REPORT FOR: cc: Christi Walls Stefany RNP Arakelov, Alexandr V. MD ~ DATE OF CONSULTATION: 06/03/2021 REQUESTING PHYSICIAN: Dr. Krishnan. REASON FOR CONSULTATION: Acute kidney injury. HISTORY OF PRESENT ILLNESS: The patient is an 85-year-old gentleman known to us who I had seen him before. He required dialysis in the past and recovered. His baseline creatinine is around 3.8-4, so he is very close to dialysis at the baseline. He also has history of coronary artery disease, congestive heart failure, chronic obstructive pulmonary disease with history of myocardial infarction and benign prostatic hypertrophy, history of carotid stenosis, diabetes mellitus type 2, presents with complaints of shortness of breath, weakness, was diagnosed with acute kidney injury and COVID infection. His creatinine was 4.6, now it is down to 4.0. SOCIAL HISTORY: No current tobacco or alcohol abuse. FAMILY HISTORY: Noncontributory. MEDICATIONS: Reviewed. PHYSICAL EXAMINATION: Not performed due to COVID infection. Exam was reviewed from the notes of Dr. Krishnan and emergency room doctor. ASSESSMENT: 1. Acute kidney injury could be due to the COVID infection. 2. Coronary artery disease. 3. Chronic kidney disease stage 4. 4. Pneumonia. 5. Sepsis due to pneumonia. 6. Metabolic acidosis. PLAN: 1. I would like to stop his lisinopril in the setting of acute kidney injury. 2. We will put him on sodium bicarbonate 650 mg twice a day and continue current treatment [place] [address] CONSULTATION Name: AVILA NIX YUAN Room: [address]#: [id number] Admission: 06/02/21 Attend Phys: Roshni Aguillon Discharge: Date of : 39 Report #: [id number] Thank you very much for this consultation. <ELECTRONICALLY SIGNED> By: Gaston Granados MD 06/04/21 0659 1338 1941Achantelle Granados MD /nt
[2021-06-04 08:00] VITALS: BP 108/60
[2021-06-04 12:01] VITALS: BP 99/57
[2021-06-04 16:00] VITALS: BP 114/63
--- NOTE | 2021-06-04 19:52 | NUR ---
patient had a good day. oxygen on 2 liters, and patient has diminished breath sounds with crackles. but patient seems to be fairly comfortable. pt did ask for a wolf catheter, and we placed one in for his comfort. antibiotics given as ordered. patient had iv site rac. dressing changed at 1800. patient had good urinary output.
[2021-06-04 21:30] VITALS: BP 104/54
[2021-06-05 00:34] VITALS: BP 103/42
[2021-06-05 03:55] LABS: ABSOLUTE LYMPHOCYTES 0.6 thou/uL (0.8-5.3); ABSOLUTE MONOCYTES 0.5 thou/uL (0.0-1.2); ABSOLUTE NEUTROPHILS 9.6 thou/uL (1.6-8.1); HEMATOCRIT 26.3 % (42.0-52.0); HEMOGLOBIN 8.7 gm/dL (14.0-18.0); MCH 29.3 pg (26.0-34.0); MCV 88.9 fL (80.0-100.0); MONOCYTES 4.8 %; MPV 8.8 fl. (7.2-11.1); NUCLEATED RBCS 0 /100WBC; PLATELET COUNT* 241 thou/uL (150-400); POLYS 89.2 %; RBC 2.96 mil/uL (4.50-6.00); RDW-CV 15.7 % (10.5-14.5); WBC 10.7 thou/uL (4.0-11.0)
[2021-06-05 04:00] VITALS: BP 115/54
[2021-06-05 04:05] LABS: GLYCOHEMOGLOBIN (HGB A1C) 6.8 % (4.8-5.6)
[2021-06-05 04:27] LABS: ALBUMIN 1.3 g/dL (3.4-5.0); CALCIUM 6.7 mg/dL (8.5-10.1); CREATININE 3.6 mg/dL (0.6-1.3); MAGNESIUM 1.9 mg/dL (1.8-2.4); PHOSPHORUS* 6.1 mg/dL (2.5-4.9); TOTAL BILIRUBIN 0.2 mg/dL (<0.1-1.0); TOTAL PROTEIN 4.6 g/dL (6.4-8.2)
[2021-06-05 04:29] LABS: POTASSIUM 3.6 mmol/L (3.5-5.1)
--- NOTE | 2021-06-05 05:12 | NUR ---
PT AO X4 AND IN BETTER MOOD THIS PM SHIFT. 2L NC WITH SATS IN MID-HIGH 90'S PT DENIES COUGH. PT HAS KHAN TO DD AND IS HAPPY WITH THAT. LUNGS HAVE LESS WHEEZES AND NOW RALES AND RHONCI. IS VISIBLY DYSPNIC. PT ON HEPARIN FOR VTE. MAKES NEEDS KNOW WITH HOURLY ROUNDING, TAKING GOOD PO FLUIDS. CALL LIGHT IN REACH FOR PT SAFETY.
[2021-06-05 08:30] VITALS: BP 122/56
[2021-06-05 12:00] VITALS: BP 90/48
--- NOTE | 2021-06-05 15:17 | NUR ---
CM ASSESSMENT ASSESSMENT COMPLETED WITH PT DAUGHTER VIA PHONE (KEVIN OWENS-[phone]). PT LIVES ALONE IN A HOME WITH STEPS TO ENTER AND ONE STEP INSIDE. PT WILL BE MOVING TO THE [facility] WHEN HE IS STRONG ENOUGH FOR A MOVE. PT USES AT HOME O2 (FROM [facility]). PT IND WITH DRESSING. PT NEEDS ASSITANCE WITH BATHING BUT REFUSES AND SUCH WILL BE RESISTANT TO BATHING. PT DAUGHTERS ASSIT WITH MEDICATION MANAGEMENT. PT HAS NO SNF OR REHAB HX. PT HAS PAST HH WITH [facility]. PT DAUGHTERS PAID FOR PRIVATE DUTY AFTER LAST HOSPITALIZATION, BUT PT ASKED THAT PRIVATE DUTY STOP AFTER OE DAY. PT FAMILY OPEN TO REFERRAL TO ANY SNF AND POTENTIAL NEED FOR REFERRAL TO [facility] DISCUSSED. CM TO FOLLOW.
[2021-06-05 16:00] VITALS: BP 151/64
--- NOTE | 2021-06-05 18:26 | NUR ---
NO ACUTE CHANGES THIS SHIFT. PT ON 2L VIA NC, PTS BASELINE. UP TO CHAIR X1 ASSIST. PT STATES HE FEELS BETTER TODAY.
[2021-06-05 20:30] VITALS: BP 126/56
[2021-06-06 00:33] VITALS: BP 101/57
[2021-06-06 04:24] LABS: HEMATOCRIT 27.8 % (42.0-52.0); HEMOGLOBIN 9.1 gm/dL (14.0-18.0); MCH 29.1 pg (26.0-34.0); MCHC 32.8 g/dL (28.0-37.0); MCV 88.7 fL (80.0-100.0); MPV 9.1 fl. (7.2-11.1); NUCLEATED RBCS 0 /100WBC; PLATELET COUNT* 260 thou/uL (150-400); RBC 3.14 mil/uL (4.50-6.00); RDW-CV 16.1 % (10.5-14.5); WBC 15.6 thou/uL (4.0-11.0)
[2021-06-06 04:45] LABS: ALBUMIN 1.3 g/dL (3.4-5.0); CALCIUM 6.8 mg/dL (8.5-10.1); CREATININE 3.9 mg/dL (0.6-1.3); MAGNESIUM 1.9 mg/dL (1.8-2.4); PHOSPHORUS* 5.8 mg/dL (2.5-4.9); POTASSIUM 3.4 mmol/L (3.5-5.1); TOTAL BILIRUBIN 0.1 mg/dL (<0.1-1.0); TOTAL PROTEIN 4.7 g/dL (6.4-8.2)
[2021-06-06 07:13] LABS: ABSOLUTE LYMPHOCYTES 0.8 thou/uL (0.8-5.3); ABSOLUTE MONOCYTES 0.3 thou/uL (0.0-1.2); ABSOLUTE NEUTROPHILS 14.5 thou/uL (1.6-8.1)
[2021-06-06 07:14] LABS: TOXIC GRANULATION 1+
[2021-06-06 07:15] LABS: PLATELET ESTIMATE ADEQUATE; POLYCHROMASIA 1+
[2021-06-06 07:37] VITALS: BP 120/61
[2021-06-06 12:00] VITALS: BP 96/45
--- NOTE | 2021-06-06 15:15 | NUR ---
CM FOLLOWUP PT NOT MED CLEAR AND ON 3L O2 AND WITH WORSENING RENAL LABS. PT FAMILY SEEKING REFERRAL TO SNF UPON DC. PT FAMILY IS NOT FULLY ONBOARD WITH REFERRAL TO [facility] AND CM ATTEMPTING TO OBTAIN PT POSITIVE COVID TEST FROM PCP ([facility] [phone]). CM TO FOLLOW.
[2021-06-06 16:00] VITALS: BP 102/57
[2021-06-06 20:00] VITALS: BP 111/60
[2021-06-07] VITALS (8 sets, daily range): BP systolic 88–130; BP diastolic 23–65
[2021-06-07 04:24] LABS: HEMATOCRIT 26.6 % (42.0-52.0); HEMOGLOBIN 8.8 gm/dL (14.0-18.0); MCH 29.4 pg (26.0-34.0); MCV 88.9 fL (80.0-100.0); RBC 2.99 mil/uL (4.50-6.00); RDW-CV 15.9 % (10.5-14.5); WBC 14.7 thou/uL (4.0-11.0)
[2021-06-07 04:39] LABS: CALCIUM 6.3 mg/dL (8.5-10.1); CREATININE 3.9 mg/dL (0.6-1.3); PHOSPHORUS* 5.8 mg/dL (2.5-4.9)
[2021-06-07 04:41] LABS: CALCIUM 6.7 mg/dL (8.5-10.1); CREATININE 3.7 mg/dL (0.6-1.3); POTASSIUM 3.5 mmol/L (3.5-5.1)
[2021-06-07 04:54] LABS: ALBUMIN 1.3 g/dL (3.4-5.0); CALCIUM 6.6 mg/dL (8.5-10.1); CREATININE 3.8 mg/dL (0.6-1.3); MAGNESIUM 1.9 mg/dL (1.8-2.4); PHOSPHORUS* 5.7 mg/dL (2.5-4.9); POTASSIUM 3.5 mmol/L (3.5-5.1)
--- NOTE | 2021-06-07 17:10 | NUR ---
CM FOLLOWUP CM ATTEMPTED TO OBTAIN POSITVE COVID TEST FROM PCP ([facility] [phone]), BUT WAS NOT ABLE TO MAKE CONTACT WITH MEDICAL RECORDS. CM TO ATTMEPT AGAIN. THIS DOCUMENT REQUESTED TO SUPPORT FUTURE REFERRAL TO SNF FAMILY IS NOT OPEN TO REFERRAL TO SNF ACCEPTING COVID+ PT. PT NOT YET MED CLEAR WITH INCREASING CREATINE. CM TO FOLLOW.
[2021-06-08 01:11] VITALS: BP 125/59
[2021-06-08 04:19] LABS: HEMOGLOBIN 9.6 gm/dL (14.0-18.0); MCH 28.9 pg (26.0-34.0); MCHC 31.9 g/dL (28.0-37.0); MCV 90.5 fL (80.0-100.0); MPV 9.5 fl. (7.2-11.1); RBC 3.32 mil/uL (4.50-6.00); RDW-CV 16.6 % (10.5-14.5); WBC 17.2 thou/uL (4.0-11.0)
--- NOTE | 2021-06-08 04:34 | NUR ---
Alert and oriented x 4, he may be forgetful. He is on 3L n/c and is coughing. Urine looks dark in wolf, awaiting labs this am, nephro is following him. Lungs diminished. Vitals are stable, O2 greater than 90% on 3L n/c. He has slept well.
[2021-06-08 04:51] LABS: ALBUMIN 1.4 g/dL (3.4-5.0); CALCIUM 6.9 mg/dL (8.5-10.1); CREATININE 3.7 mg/dL (0.6-1.3); MAGNESIUM 1.9 mg/dL (1.8-2.4); POTASSIUM 3.6 mmol/L (3.5-5.1); TOTAL BILIRUBIN 0.1 mg/dL (<0.1-1.0); TOTAL PROTEIN 4.7 g/dL (6.4-8.2)
[2021-06-08 05:07] VITALS: BP 114/66
[2021-06-08 09:09] VITALS: BP 126/72
[2021-06-08 12:26] VITALS: BP 111/49
--- NOTE | 2021-06-08 15:50 | NUR ---
CM FOLLOWUP PT NOT MED CLEAR FOR DC. PT FAMILY REQUESTING [facility] ([phone]) AND [facility] ([phone]). CM OBTAINED POSITIVE COVID TEST DATED 05/25/21 FROM PT PCP ([facility] [phone]) AND SUBMITTED REFERRALS. CM TO FOLLOW.
[2021-06-08 16:33] VITALS: BP 102/52
[2021-06-08 19:45] VITALS: BP 109/58
[2021-06-09] VITALS: BP 105/52
[2021-06-09 04:00] VITALS: BP 101/55
--- NOTE | 2021-06-09 04:54 | NUR ---
PT A&O X 4. ON 3L BY NC. MEDS GIVEN ORDERED. NO C/O PAIN. KHAN CATH IN PLACE. CALL LIGHT WITHIN REACH. WILL CONTINUE TO MONITOR.
[2021-06-09 08:00] VITALS: BP 125/61
[2021-06-09 10:26] LABS: ABSOLUTE BASOPHILS 0.1 thou/uL (0.0-0.2); ABSOLUTE LYMPHOCYTES 0.7 thou/uL (0.8-5.3); ABSOLUTE MONOCYTES 1.1 thou/uL (0.0-1.2); ABSOLUTE NEUTROPHILS 16.2 thou/uL (1.6-8.1); BASOPHILS 0.5 %; EOSINOPHILS 0.1 %; HEMOGLOBIN 9.8 gm/dL (14.0-18.0); LYMPHOCYTES 3.8 %; MCH 29.9 pg (26.0-34.0); MCHC 32.6 g/dL (28.0-37.0); MCV 91.8 fL (80.0-100.0); MPV 10.2 fl. (7.2-11.1); NUCLEATED RBCS 0 /100WBC; PLATELET COUNT* 231 thou/uL (150-400); POLYS 89.6 %; RBC 3.27 mil/uL (4.50-6.00); RDW-CV 16.7 % (10.5-14.5); WBC 18.1 thou/uL (4.0-11.0)
[2021-06-09 10:33] LABS: CALCIUM 6.9 mg/dL (8.5-10.1); CREATININE 3.7 mg/dL (0.6-1.3); POTASSIUM 4.1 mmol/L (3.5-5.1)
[2021-06-09 10:38] LABS: ALBUMIN 1.5 g/dL (3.4-5.0); TOTAL BILIRUBIN 0.2 mg/dL (<0.1-1.0); TOTAL PROTEIN 4.3 g/dL (6.4-8.2)
[2021-06-09 12:20] VITALS: BP 104/54
[2021-06-09 16:00] VITALS: BP 108/46
--- NOTE | 2021-06-09 17:04 | NUR ---
CM FOLLOWUP PT MAY BE CLEAR FOR DC TO SNF TOMORROW, 06/10/21. PT ACCEPTED TO [facility] ([phone]). TO ARRANGE TRANSPORT TO SNF ON 06/10/21, CALL [facility] AFTER 12PM AT [phone]. CM TO FOLLOW.
[2021-06-09 20:00] VITALS: BP 110/61
[2021-06-10 00:15] VITALS: BP 124/67
[2021-06-10 00:42] LABS: URINE BILIRUBIN NEGATIVE (Negative); URINE BLOOD 2+ (Negative); URINE CLARITY CLEAR; URINE COLOR STRAW; URINE GLUCOSE-RANDOM 1+ (Negative); URINE KETONES NEGATIVE (Negative); URINE LEUKOCYTES-REFLEX NEGATIVE (Negative); URINE NITRITE-REFLEX NEGATIVE (Negative); URINE PROTEIN 1+ (Negative); URINE SPECIFIC GRAVITY 1.015 (1.005-1.030); URINE UROBILINOGEN 0.2 E.U./dl (0.2-1.0)
[2021-06-10 00:56] LABS: CASTS None Seen /LPF (None Seen); SQUAMOUS 0-3 Few /LPF (0-3)
[2021-06-10 00:57] LABS: BACTERIA-REFLEX 1-9 Few /HPF (None Seen); CRYSTALS None Seen /LPF (None Seen); URINE RBC 3-10 Few /HPF (0-2); URINE WBC-REFLEX 0-5 Rare /HPF (0-5)
[2021-06-10 04:00] VITALS: BP 110/62
--- NOTE | 2021-06-10 05:40 | NUR ---
PT TRANSFERRED TO ROOM 215. AWAKE MOST OF NIGHT. O2 ON AT 4L/NC, SOA WITH ACTIVITY. HAVING OCC MOIST NON-PROD COUGH. HOB ELEVATED. ASSISTED TO BSC FOR BOWELS BUT UNABLE TO GO. KHAN PATENT. TELEMETRY ON SHOWING A-FIB WITH BBB. RATE DOES INCREASE INTO 130-150'S WHEN GETTING UP.
[2021-06-10] MEDS ORDERED: PROTONIX40 M2 PO (07:50)
[2021-06-10] MEDS ORDERED: DOXYCYCLINE 10100 MG PO (07:50)
[2021-06-10] MEDS ORDERED: ANTACID650 MG PO (07:50)
[2021-06-10] MEDS ORDERED: OYSTER SHELL C500 MG PO (07:50)
[2021-06-10] MEDS ORDERED: NOVOLOG100 UNIT/M SUBQ (07:50)
[2021-06-10] MEDS ORDERED: DEXAMETHASONE1 MG PO (07:52)
[2021-06-10 08:00] VITALS: BP 110/52
[2021-06-10 08:51] LABS: HEMATOCRIT 32.3 % (42.0-52.0); HEMOGLOBIN 10.3 gm/dL (14.0-18.0); MCHC 31.9 g/dL (28.0-37.0); MCV 90.9 fL (80.0-100.0); MPV 9.4 fl. (7.2-11.1); NUCLEATED RBCS 0 /100WBC; PLATELET COUNT* 211 thou/uL (150-400); RBC 3.55 mil/uL (4.50-6.00); RDW-CV 16.9 % (10.5-14.5)
[2021-06-10 09:02] LABS: ALBUMIN 1.4 g/dL (3.4-5.0); CALCIUM 7.4 mg/dL (8.5-10.1); CREATININE 3.7 mg/dL (0.6-1.3); POTASSIUM 4.3 mmol/L (3.5-5.1); TOTAL BILIRUBIN 0.2 mg/dL (<0.1-1.0); TOTAL PROTEIN 4.8 g/dL (6.4-8.2)
[2021-06-10 10:30] LABS: ABSOLUTE LYMPHOCYTES 0.7 thou/uL (0.8-5.3); ABSOLUTE MONOCYTES 0.9 thou/uL (0.0-1.2); ABSOLUTE NEUTROPHILS 15.5 thou/uL (1.6-8.1); PLATELET ESTIMATE ADEQUATE
--- NOTE | 2021-06-10 10:58 | NUR ---
the patient is alert. able to make needs known. wolf intact and patent. afib on the monitor. call light within reach.
--- NOTE | 2021-06-10 11:15 | NUR ---
David at [facility] called to give report and informed of pick at 1400. Fanny informed the patient will be transported at 1400.
--- NOTE | 2021-06-10 11:17 | NUR ---
Discharge orders completed, printed and faxed to [facility] [phone]. Called Estelle/Admission [phone] and [facility] pt at 2pm. notified will need O2 2L Notified Dtr Becka [phone] of discharge plans. Left message with extension service supervisor for pt nurse Mary Jane to call report to [phone] and pharmacy picking tech time.
--- NOTE | 2021-06-10 11:48 | NUR ---
Cather removed. the patient tolearted well.
[2021-06-10 12:22] VITALS: BP 123/63
--- NOTE | 2021-06-10 13:21 | NUR ---
All personal belonings packed. the patient has his teeth in his mouth. The patient is choosing to hold his phone. His daughter was here and brought a coat, hat and pair black shoes.
--- NOTE | 2021-06-10 14:23 | NUR ---
the patient was discharged. the patieint was alert. transferred to the wheelchair with stand by assist. jims in his bag. iv and monitor removed.
== END 2021-06-10 14:29 | DRG 871 ==
LOC: M.ERS 11:05 → M.TBA-ER 13:12 → M.ORTHSURG 13:12 → M.2W 06-10 00:26
PROVIDERS: Emergency Medicine; Internal Medicine; Internal Medicine Critical Care Medicine; Internal Medicine Nephrology; ADMIT Internal Medicine; ATTEND Internal Medicine
PROC: XW033E5 Introduction of Remdesivir Anti-infective into Peripheral Vein, Percutaneous Approach, New Technology Group 5 (ICD-10-PCS; principal; 2021-06-04)
PROC: 5A0935A Assistance with Respiratory Ventilation, Less than 24 Consecutive Hours, High Flow/Velocity Cannula (ICD-10-PCS; 2021-06-07)
PROC: 5A0935A Assistance with Respiratory Ventilation, Less than 24 Consecutive Hours, High Flow/Velocity Cannula (ICD-10-PCS; 2021-06-09)
DX: A41.89 Other specified sepsis (principal); N17.0 Acute kidney failure with tubular necrosis; J12.82 Pneumonia due to coronavirus disease 2019; J96.21 Acute and chronic respiratory failure with hypoxia; U07.1 COVID-19; J44.0 Chronic obstructive pulmonary disease with (acute) lower respiratory infection; N18.4 Chronic kidney disease, stage 4 (severe); J44.1 Chronic obstructive pulmonary disease with (acute) exacerbation; I13.0 Hypertensive heart and chronic kidney disease with heart failure and stage 1 through stage 4 chronic kidney disease, or unspecified chronic kidney disease; I50.9 Heart failure, unspecified; I25.10 Atherosclerotic heart disease of native coronary artery without angina pectoris; N40.0 Benign prostatic hyperplasia without lower urinary tract symptoms; E87.5 Hyperkalemia; B37.9 Candidiasis, unspecified; E11.22 Type 2 diabetes mellitus with diabetic chronic kidney disease; D64.9 Anemia, unspecified; E11.65 Type 2 diabetes mellitus with hyperglycemia; E83.51 Hypocalcemia; R53.81 Other malaise; E11.649 Type 2 diabetes mellitus with hypoglycemia without coma; E11.51 Type 2 diabetes mellitus with diabetic peripheral angiopathy without gangrene; I25.2 Old myocardial infarction; Z95.5 Presence of coronary angioplasty implant and graft; Z88.0 Allergy status to penicillin; Z87.891 Personal history of nicotine dependence